=== PATIENT | male | born 1980 | race Caucasian/White ===

== ENCOUNTER 2020-01-10 17:12 | Emergency (ER) | payer SELFPAY ==
[~2020-01-10] VITALS: Ht 167.6 cm; Wt 61.2 kg
[2020-01-10 17:25] VITALS: BP 139/80
[2020-01-10] MEDS ORDERED: KETOROLAC TROMETHAMINE INJ 30 MG/ML VIAL ONE (17:42)
--- NOTE | 2020-01-10 17:45 | NUR ---
XRAY AT THE BEDSIDE
[2020-01-10] MEDS ORDERED: KETOROLAC TROMETHAMINE INJ 60 MG/2 ML VIAL IM ONE (18:00)
--- NOTE | 2020-01-10 18:01 | NUR ---
CORANA SWAB DONE AND SENT TO LAB
--- NOTE | 2020-01-10 18:38 | NUR ---
EMT AT BEDSIDE FOR CHARLIE WRAP AND CRUTCHES. PT TEACHING PROVIDED ON CRUTCHES USE. RETURN DEMONSTRATION BY THE PT.
--- NOTE | 2020-01-10 18:41 | NUR ---
Patient discharged to home in stable condition. Written and verbal after care instructions given. Patient verbalizes understanding of instruction. Pt ambulatory with a steady gait with an aide of crutches.
== END 2020-01-10 18:42 | disposition home or self-care (01) ==
LOC: ER 17:12
DX: M25.561 Pain in right knee (principal); Z20.828 Contact with and (suspected) exposure to other viral communicable diseases
CPT/HCPCS: 73564; 96372; 99284; C9803; J1885; U0003